=== PATIENT | male | born 1965 | race Caucasian/White ===

== ENCOUNTER → 2019-09-09 08:27 | Outpatient (BNVA) | payer MEDICARE, MEDICAID, SELFPAY | PROVIDERS: Family Provider Specialist; PCP Family Medicine; Referring Provider Family Medicine; Visit Provider Anesthesiology Pain Medicine | DX: M47.816 Spondylosis without myelopathy or radiculopathy, lumbar region (principal); M25.551 Pain in right hip; F17.210 Nicotine dependence, cigarettes, uncomplicated; Z79.891 Long term (current) use of opiate analgesic | CPT/HCPCS: 99204; 99999 ==

== ENCOUNTER 2019-09-11 12:40 | Outpatient (CLI) | payer MEDICARE, MEDICAID, SELFPAY ==
--- NOTE | 2019-09-11 12:55 | XR_ITS ---
WS: [id number] LUMBAR SPINE: 5 VIEWS TECHNIQUE: AP, lateral, and L5-S1 spot. Lateral views in neutral, flexion and extension. HISTORY: back pain COMPARISON: None available. Posterior lumbar alignment is normal. Less than 2 mm retrolisthesis of L2. Advanced degenerative disc disease from L2-3 to L5-S1. No fracture. There is mild anterior wedging of T12 which appears chronic . Mild narrowing of the facet joints throughout the lumbar spine. No instability with flexion or exte nsion. SI joints are symmetric bilaterally. No soft tissue abnormalities. Metallic foreign body projects over the anterior lumbar spine on the lateral views. XR/XR lumbar spine min 4V [id number] IMPRESSION: 1. Advanced degenerative disc disease throughout the lumbar spine with no inst ability. 2. Mild anterior wedging of T12.
--- NOTE | 2019-09-11 12:55 | XR_ITS ---
WS: [id number] Bilateral hips. HISTORY: Hip and low back pain. COMPARISON: 06/05/2011. RIGHT hip: No significant narrowing of the hip joint. No fracture or dislocation. No osteoblastic or osteolytic bone disease. Ovoid calcific density measuring 13 mm along the inferior hip joint. Could b e a loose body within the hip joint or soft tissue calcification. LEFT hip: No significant narrowing of the hip joint. No fracture or dislocation. No osteolytic or ost eoblastic bone disease. XR/XR hip BI 3-4V wo/w pel [id number] IMPRESSION: 1. No significant osteoarthritis. 2. Ovoid calcific or osseous fragment measuring 13 mm projects over the inferio r acetabulum. Could be a soft tissue calcification such as granuloma or loose b karey within the joint.
== END 2019-09-11 12:41 | disposition home or self-care (01) ==
PROVIDERS: Family Provider Specialist; PCP Family Medicine; Visit Provider Anesthesiology Pain Medicine
DX: M47.896 Other spondylosis, lumbar region (principal); M25.552 Pain in left hip; M25.551 Pain in right hip; M54.5 Low back pain
CPT/HCPCS: 72114; 73522

== ENCOUNTER → 2019-09-23 09:26 | Outpatient (BNVA) | payer MEDICARE, MEDICAID, SELFPAY | PROVIDERS: Family Provider Specialist; PCP Family Medicine; Visit Provider Anesthesiology Pain Medicine | DX: M47.816 Spondylosis without myelopathy or radiculopathy, lumbar region (principal); M79.18 Myalgia, other site; M25.551 Pain in right hip; M19.90 Unspecified osteoarthritis, unspecified site; F17.210 Nicotine dependence, cigarettes, uncomplicated | CPT/HCPCS: 20550; 20553; 99214; J1030; J3490 ==

== ENCOUNTER → 2019-09-30 13:52 | Outpatient (BNVA) | payer MEDICARE, MEDICAID, SELFPAY | PROVIDERS: Family Provider Specialist; PCP Family Medicine; Visit Provider Anesthesiology Pain Medicine | DX: M25.551 Pain in right hip (principal); F17.210 Nicotine dependence, cigarettes, uncomplicated | CPT/HCPCS: 20610; 77003; J1030; J2001; J3490 ==

== ENCOUNTER → 2019-11-11 10:16 | Outpatient (BNVA) | payer MEDICARE, MEDICAID, SELFPAY | PROVIDERS: Family Provider Specialist; PCP Family Medicine; Visit Provider Anesthesiology Pain Medicine | DX: M54.12 Radiculopathy, cervical region (principal); M47.812 Spondylosis without myelopathy or radiculopathy, cervical region; M47.816 Spondylosis without myelopathy or radiculopathy, lumbar region; M25.551 Pain in right hip; M19.90 Unspecified osteoarthritis, unspecified site; M62.830 Muscle spasm of back | CPT/HCPCS: 99213; 99214 ==

== ENCOUNTER → 2021-12-19 13:24 | Outpatient (BNVA) | payer MEDICARE, MEDICAID, SELFPAY | PROVIDERS: Family Provider Specialist; PCP Family Medicine; Visit Provider Family Medicine | DX: R53.83 Other fatigue (principal) | CPT/HCPCS: 84443 ==

== ENCOUNTER → 2022-01-04 13:42 | Outpatient (BNVA) | payer MEDICARE, MEDICAID, SELFPAY | PROVIDERS: Family Provider Specialist; PCP Family Medicine; Referring Provider Family Medicine; Visit Provider Orthopaedic Surgery | DX: M51.16 Intervertebral disc disorders with radiculopathy, lumbar region (principal); M47.22 Other spondylosis with radiculopathy, cervical region | CPT/HCPCS: 72040; 72100; 99204 ==

== ENCOUNTER 2022-02-13 08:46 | Outpatient (CLI) | payer MEDICARE, MEDICAID, SELFPAY ==
--- NOTE | 2022-02-13 09:30 | MR_ITS ---
WS: [id number] MRI CERVICAL SPINE NONCONTRAST TECHNIQUE: Sagittal T1, T2 and STIR imaging. Axial T2, gradient, and fiesta imaging. CLINICAL INFORMATION: Neck pain COMPARISON: MRI 2011 FINDINGS: Straightening of the normal cervical lordosis. Slight retrolisthesis C5 on C6 and C6 on C7. Cord sign al is normal. C2-C3: Mild facet arthropathy. Mild LEFT bony foraminal narrowing. C3-C4: No significant disc bulging. Mild LEFT bony foraminal narrowing. Mild facet arthropathy. Spina l canal is patent. C4-C5: Moderate RIGHT facet arthropathy. Mild to moderate RIGHT and mild LEFT bony foraminal narrowin g. Spinal canal is patent. C5-C6: Disc osteophyte complex with endplate ridging. LEFT pericentral disc osteophyte protrusion wit h moderate central canal stenosis and slight indentation on the cervical cord. This is slightly progr essed compared to 2011. Severe LEFT greater than RIGHT bony foraminal narrowing. Moderate facet arthr opathy. C6-C7: Disc osteophyte complex with endplate ridging. Mild central canal stenosis. Moderate to severe bilateral bony foraminal narrowing. Moderate facet arthropathy. C7-T1: Mild facet arthropathy. Spinal canal and foramen are patent Visualized brain stem structures: Normal. Prevertebral soft tissues: Normal. MR/MR cervical spin wo con* [id number] IMPRESSION: Some images degraded by motion artifact. 1. Straightening of the normal cervical lordosis. 2. Disc osteophyte complex C5-C6 with moderate central canal stenosis and slig ht indentation on the cervical cord. This is slightly progressed compared to 20 11. Mild central canal stenosis C6-C7. 3. Moderate to severe bony foraminal narrowing worse at bilateral C5-C6 worse in the LEFT and bilateral C6-C7. 4. Moderate RIGHT C4-C5 facet arthropathy with mild to moderate bony foraminal narrowing.
== END 2022-02-13 08:47 | disposition home or self-care (01) ==
LOC: RAD 08:46
PROVIDERS: PCP Family Medicine; Visit Provider Orthopaedic Surgery
DX: M25.78 Osteophyte, vertebrae (principal); M48.02 Spinal stenosis, cervical region; M47.812 Spondylosis without myelopathy or radiculopathy, cervical region
CPT/HCPCS: 72141

== ENCOUNTER → 2022-03-15 13:27 | Outpatient (BNVA) | payer MEDICARE, MEDICAID, SELFPAY | PROVIDERS: PCP Family Medicine; Visit Provider Orthopaedic Surgery | DX: M47.22 Other spondylosis with radiculopathy, cervical region (principal) | CPT/HCPCS: 99212; 99213 ==